=== PATIENT | female | born 1970 | race Caucasian/White ===

== ENCOUNTER 2017-01-16 13:06 | Emergency (ER) | payer SELFPAY ==
[2017-01-16 13:15] VITALS: BP 144/88
--- NOTE | 2017-01-16 13:17 | ED Physician Documentation ---
Skin Rash - HPI Stated Complaint: SKIN Chief Complaint: Skin Rash Onset: hours (24 hours) Timing: worse Duration: worse Location: facial (left facial area) Quality: painful, burning Identified Cause?: No Further Comments: yes - ROS CONST: no problems - PAST HX Past History: none Other History: none Surgeries/Procedures: Yes (BTL) Immunizations: referred to PCP Allergies/Adverse Reactions: Allergies Allergy/AdvReac Type Severity Reaction Status Date / Time No Known Allergies Allergy Verified 01/16/17 13:15 Home Medications: Ambulatory Orders Medication Instructions Recorded Acyclovir [Zovirax] 800 mg PO TID #42 tablet 01/16/17 - SOCIAL HX Smoking History: less than 1 pack/day (12 / day) Alcohol Use: none Drug Use: none - FAMILY HX Family History: none - VITAL SIGNS Vital Signs: Vital Signs Temp Pulse Resp BP Pulse Ox 98.6 F 100 H 22 144/88 99 01/16/17 13:12 01/16/17 13:12 01/16/17 13:12 01/16/17 13:12 01/16/17 13:12 - REVIEWED ASSESSMENTS Nursing Assessment Reviewed: Yes Vitals Reviewed: Yes Skin Rash Physical Exam - EXAM General Appearance: alert, mild distress Skin: warm,dry, erythema, other (several shallow ulcerations/vesiculation to the lateral nose. Suborbital swelling and erythema) Location: face (left infraorbital) Character: vesicular, other (swelling and erythema to the suborbital area.) Symptoms: warmth, tenderness, swelling EENT: eyes nml inspection Neck: trachea midline, no swelling Respiratory: no resp distress, chest non-tender CVS: reg. rate & rhythm, heart sounds nml Neuro/Psych: mood/affect nml Discharge Clincal Impression: Shingles rash Additional Instructions: Appointment to see Dr Lang at 2 PM today. Take all of the medication ( acyclovir) as directed. If you have further problems to return or follow-up with your primary care provider. Home Medications: Ambulatory Orders Acyclovir [Zovirax] 800 mg PO TID #42 tablet 01/16/17 Condition: Stable Disposition: 01 HOME, SELF-CARE Decision to Admit: NO Date of Decison to Admit: 01/16/17 Decision Time: 13:28
== END 2017-01-16 13:42 | disposition home or self-care (01) ==
LOC: ED 13:06
DX: B02.9 Zoster without complications (principal)
CPT/HCPCS: 99283